=== PATIENT | female | born 1985 | race Caucasian/White ===

== ENCOUNTER 2017-02-20 18:54 | Emergency (ER) | payer OTHER ==
[2017-02-20 19:00] VITALS: BP 126/76; PULSE 104; TEMP 98.3; BMI 23.8
--- NOTE | 2017-02-20 19:02 | PDOC ---
Rapid Medical Evaluation Chief Complaint: Vaginal Bleeding Time Seen by Provider: 02/20/17 19:00 Medical Evaluation: Allergies Allergy/AdvReac Type Severity Reaction Status Date / Time sulfamethoxazole Allergy Verified 02/20/17 19:00 [From Bactrim] trimethoprim [From Bactrim] Allergy Verified 02/20/17 19:00 Vital Signs Temp Pulse Resp BP Pulse Ox 98.3 F 104 H 18 126/76 99 02/20/17 18:58 02/20/17 18:58 02/20/17 18:58 02/20/17 18:58 02/20/17 18:58 02/20/17 19:01 I have performed a brief in-person evaluation of this patient. The patient presents with a chief complaint of: vaginal bleeding and abdominal pain since last night. Patient 17 weeks states no more bleeding but complaining of abdominal cramping Pertinent physical exam findings: NAD unlabored breathing abdomen, non tender I have ordered the following: urinalysis The patient will proceed to the ED for further evaluation.
[2017-02-20 20:44] LABS: URINE APPEARANCE SLCLOUDY; URINE BILIRUBIN NEGATIVE (NEGATIVE); URINE BLOOD 2+ (NEGATIVE); URINE COLOR YELLOW; URINE GLUCOSE (UA) NEGATIVE (NEGATIVE); URINE KETONE NEGATIVE (NEGATIVE); URINE NITRITE NEGATIVE (NEGATIVE); URINE PROTEIN NEGATIVE (NEGATIVE); URINE UROBILINOGEN NEGATIVE mg/dL (0.2-1.0)
[2017-02-20 20:46] LABS: URINE LEUK ESTERASE 3+ (NEGATIVE)
[2017-02-20 20:50] LABS: URINE BACTERIA RARE /hpf (NONE SEEN); URINE MUCUS RARE; URINE RBC 2 /hpf (0-3); URINE WBC 4 /hpf (3-5)
--- NOTE | 2017-02-20 21:08 | PDOC ---
History of Present Illness - General History Source: Patient Exam Limitations: No Limitations - History of Present Illness Initial Comments: 02/20/17 21:13 Patient is a 31 year old female (O+),17 weeks , , who presents to the ED with vaginal bleeding since last night. Patient states that she had sexual intercourse last night and became time as she stopped she noted red blood bleeding with associated abdominal pain. Patient notes that she passed few blood clots and the bleeding has resolved. Patient states that later today she developed abdominal pain and has pinkish bleeding. She reports natural delivery in the past. [facility] - Dr. Bran <Lo Maloney - Last Filed: 02/20/17 21:12> <Marianela Olivera - Last Filed: 02/21/17 01:15> - General Chief Complaint: Vaginal Bleeding Stated Complaint: VAGINAL BLEEDING/17 WKS Time Seen by Provider: 02/20/17 19:00 Past History <Lo Maloney - Last Filed: 02/20/17 21:12> - Past Medical History COPD: No - Suicide/Smoking/Psychosocial Hx Smoking History: Never smoked Information on smoking cessation initiated: No Hx Alcohol Use: No Drug/Substance Use Hx: No Substance Use Type: None <Marianela Olivera - Last Filed: 02/21/17 01:15> - Past Medical History Allergies/Adverse Reactions: Allergies Allergy/AdvReac Type Severity Reaction Status Date / Time sulfamethoxazole Allergy Verified 02/20/17 19:00 [From Bactrim] trimethoprim [From Bactrim] Allergy Verified 02/20/17 19:00 Home Medications: Ambulatory Orders NK [No Known Home Medication] 02/20/17 Review of Systems - Review of Systems Able to Perform ROS?: Yes Comments:: 02/20/17 21:13 CONSTITUTIONAL: Absent: fever, chills, diaphoresis, generalized weakness, malaise, loss of appetite HEENT: Absent: rhinorrhea, nasal congestion, throat pain, throat swelling, difficulty swallowing, mouth swelling, ear pain, eye pain, visual Changes CARDIOVASCULAR: Absent: chest pain, syncope, palpitations, irregular heart rate, lightheadedness , peripheral edema RESPIRATORY: Absent: cough, shortness of breath, dyspnea with exertion, orthopnea, wheezing, stridor, hemoptysis GASTROINTESTINAL: Present:Abdominal discomfort. Absent: abdominal distension, nausea, vomiting, diarrhea, constipation, melena, hematochezia GENITOURINARY: Present: vaginal bleeding Absent: dysuria, frequency, urgency, hesitancy, hematuria, flank pain, genital pain MUSCULOSKELETAL: Absent: myalgia, arthralgia, joint swelling SKIN: Absent: rash, itching, pallor HEMATOLOGIC/IMMUNOLOGIC: Absent: easy bleeding, easy bruising, lymphadenopathy, frequent infections ENDOCRINE: Absent: unexplained weight gain, unexplained weight loss, heat intolerance, cold intolerance NEUROLOGIC: Absent: headache, focal weakness or paresthesias, dizziness, unsteady gait, seizure, mental status changes, bladder or bowel incontinence PSYCHIATRIC: Absent: anxiety, depression, suicidal or homicidal ideation, hallucinations. <Lo Maloney - Last Filed: 02/20/17 21:12> *Physical Exam - Vital Signs Last Vital Signs Temp Pulse Resp BP Pulse Ox 98.3 F 104 H 18 126/76 99 02/20/17 18:58 02/20/17 18:58 02/20/17 18:58 02/20/17 18:58 02/20/17 18:58 <Lo Maloney - Last Filed: 02/20/17 21:12> - Vital Signs Last Vital Signs Temp Pulse Resp BP Pulse Ox 98.3 F 104 H 18 126/76 99 02/20/17 18:58 02/20/17 18:58 02/20/17 18:58 02/20/17 18:58 02/20/17 18:58 <Marianela Olivera - Last Filed: 02/21/17 01:15> ED Treatment Course - ADDITIONAL ORDERS Additional order review: Laboratory Results 02/20/17 20:30 Urine Color Yellow Urine Appearance Slcloudy Urine pH 7.0 Ur Specific [place] 1.008 Urine Protein Negative Urine Glucose (UA) Negative Urine Ketones Negative Urine Blood 2+ H Urine Nitrite Negative Urine Bilirubin Negative Urine Urobilinogen Negative Urine WBC (Auto) 4 Urine RBC (Auto) 2 Ur Epithelial Cells Rare Urine Bacteria Rare Urine Mucus Rare <Lo Maloney - Last Filed: 02/20/17 21:12> - ADDITIONAL ORDERS Additional order review: Laboratory Results 02/20/17 20:30 Urine Color Yellow Urine Appearance Slcloudy Urine pH 7.0 Ur Specific [place] 1.008 Urine Protein Negative Urine Glucose (UA) Negative Urine Ketones Negative Urine Blood 2+ H Urine Nitrite Negative Urine Bilirubin Negative Urine Urobilinogen Negative Urine WBC (Auto) 4 Urine RBC (Auto) 2 Ur Epithelial Cells Rare Urine Bacteria Rare Urine Mucus Rare - RADIOLOGY Radiology Studies Ordered: Category Date Time Status FOLLOW-UP US [US] Stat Ultrasound 02/20/17 20:13 Ordered <Marianela Olivera - Last Filed: 02/21/17 01:15> Medical Decision Making - Medical Decision Making 02/21/17 01:14 Blood type O+. She is a significant anemia Pelvic ultrasound showed that there was a single live intrauterine of about 18 weeks with heart tones of 152. The os is closed. There was an adequate amount of amniotic fluid. However, stated that the placenta was lying over the os. Plan patient has an appointment later today with [facility] <Marianela Olivera - Last Filed: 02/21/17 01:15> *DC/Admit/Observation/Transfer - Attestations Scribe Attestion: 02/20/17 21:13 Documentation prepared by POOL Ramires, acting as medical van driver for Marianela Olivera MD/DO. <Lo Maloney - Last Filed: 02/20/17 21:12> <Marianela Olivera - Last Filed: 02/21/17 01:15> Diagnosis at time of Disposition: Threatened - Discharge Dispostion Disposition: HOME Condition at time of disposition: Stable - Referrals Referrals: Juani Bran MD [Primary Care Provider] - - Patient Instructions Printed Discharge Instructions: DI for Threatened Additional Instructions: KEEP YOUR APPOINTMENT WITH [facility] [facility] THIS WEEK - Post Discharge Activity
[2017-02-21 11:11] LABS: URINE LEUK ESTERASE 3+ (NEGATIVE)
== END 2017-02-20 23:41 | disposition home or self-care (01) ==
LOC: JER 18:54
DX: O26.892 Other specified pregnancy related conditions, second trimester (principal); Z3A.17 17 weeks gestation of pregnancy
CPT/HCPCS: 36415; 76816-TC; 81003; 81015; 84702; 86850; 86900; 86901; 87086; 99281-25

== ENCOUNTER 2017-07-17 11:45 | Inpatient (IN) | payer OTHER ==
[2017-07-17 16:26] LABS: BASO % 0.2 % (0-2.0); EOS % 0.3 % (0-4.5); HEMATOCRIT 36.9 % (32.4-45.2); HEMOGLOBIN 12.4 GM/dL (10.7-15.3); LYMPH % 20.3 % (8-40); MCH 33.1 pg (25.7-33.7); MCHC 33.6 g/dl (32.0-36.0); MEAN CELL VOLUME 98.3 fl (80-96); MEAN PLT VOLUME 10.1 fl (7.5-11.1); MONO % 5.5 % (3.8-10.2); NEUT % 73.7 % (42.8-82.8); PLATELET COUNT 246 K/MM3 (134-434); RBC 3.75 M/mm3 (3.60-5.2); RDW 13.9 % (11.6-15.6); WHITE BLOOD COUNT 9.3 K/mm3 (4.0-10.0)
[2017-07-17] MEDS ORDERED: DEXTROSE 5%-LACTATED RINGERS 1,000 ML IV SCH (16:45)
[2017-07-17 16:50] VITALS: BMI 27.4
[2017-07-17 16:58] LABS: ANION GAP 8 (8-16); BLOOD UREA NITROGEN 5 mg/dL (7-18); CALCIUM 8.8 mg/dL (8.5-10.1); CHLORIDE 105 mmol/L (98-107); CO2 25 mmol/L (21-32); CREATININE 0.6 mg/dL (0.55-1.02); GLUCOSE,RANDOM 112 mg/dL (74-106); POTASSIUM 3.7 mmol/L (3.5-5.1); SODIUM 138 mmol/L (136-145)
--- NOTE | 2017-07-17 18:27 | HP ---
Past Medical History - Admission Chief Complaint: Leakage of fluid History of Present Illness: 31 yo @ 39 weeks gestation, EDC 07/23/17, presents to L&D c/o leakage of fluid. Nitrazine test was negative but she was admitted because of advance cervical dilation. History Source: Patient Limitations to Obtaining History: No Limitations - Past Medical History ...: 2 ...Para: 1 ...Term: 0 ...: 1 ...Spon : 0 ...Induced : 0 ...Multiple Gestation: 0 ...LMP: 10/20/16 ... Weeks Gestation by Dates: 38.4 ...EDC by Dates: 07/27/17 ...EDC by [facility]: 07/23/17 - Past Surgical History Past Surgical History: Yes: None Hx Myomectomy: No Hx Transabdominal Cerclage: No - Smoking History Smoking history: Never smoked Have you smoked in the past 12 months: No - Alcohol/Substance Use Hx Alcohol Use: No - Social History History of Recent Travel: No Home Medications - Allergies Allergies/Adverse Reactions: Allergies Allergy/AdvReac Type Severity Reaction Status Date / Time sulfamethoxazole Allergy Severe Hives Verified 07/17/17 12:56 [From Bactrim] trimethoprim [From Bactrim] Allergy Verified 07/17/17 12:56 - Home Medications Home Medications: Ambulatory Orders Vit/Iron Fum/Folic AC [ Tablet] 1 tab PO DAILY 06/22/17 Ferrous Sulfate [Feosol] 325 mg PO BID 07/17/17 Family Disease History - Family Disease History Family History: Unremarkable Review of Systems - Review of Systems Constitutional: reports: No Symptoms Eyes: reports: No Symptoms HENT: reports: No Symptoms Neck: reports: No Symptoms Cardiovascular: reports: No Symptoms Respiratory: reports: No Symptoms Gastrointestinal: reports: No Symptoms Genitourinary: reports: Other (Leakage of fluid) Breasts: reports: No Symptoms Reported Musculoskeletal: reports: No Symptoms Integumentary: reports: No Symptoms Neurological: reports: No Symptoms Endocrine: reports: No Symptoms Hematology/Lymphatic: reports: No Symptoms Psychiatric: reports: No Symptoms Pain Intensity: 3 Physical Exam - Maternity Vital Signs: Vital Signs Temperature 99.0 F 07/17/17 15:00 Pulse Rate 87 07/17/17 17:00 Respiratory Rate 20 07/17/17 17:00 Blood Pressure 109/72 07/17/17 17:00 O2 Sat by Pulse Oximetry (%) Constitutional: Yes: Well Nourished Eyes: Yes: Conjunctiva Clear HENT: Yes: Atraumatic Neck: Yes: Supple Cardiovascular: Yes: Regular Rate and Rhythm Lungs: Clear to auscultation - Abdominal Exam/OB Number of Fetuses: Single Presentation: Vertex - Vaginal Exam/OB Dilatation (cm): 4 Effacement (%): 70 Station: -3 - Physical Exam Integumentary: Yes: WNL ...Motor Strength: WNL Psychiatric: Yes: Alert, Oriented - Labs Lab Results: CBC, BMP 07/17/17 15:45 07/17/17 15:45 Problem List - Problems (1) 39 weeks gestation of Code(s): Z3A.39 - 39 WEEKS GESTATION OF Assessment/Plan IUP @ 39 weeks Admit for augmentation of labor Analgesia as needed Anticipate
--- NOTE | 2017-07-17 18:39 | PN ---
Progress Note (short form) - Note Progress Note: Patient seen and evaluated. She c/o mild discomfort FHR : Reassuring [place] : + irregular contractions VE : / -3 SROM ( clear ) A/P : IUP @ 39 weeks Analgesia as needed Consider Pitocin augmentation Problem List - Problems (1) 39 weeks gestation of Code(s): Z3A.39 - 39 WEEKS GESTATION OF
[2017-07-17] MEDS ORDERED: OXYTOCIN 30 UNITS in 0.9% NS 30 UNIT/500 ML INFUS.BAG IVPB SCH (19:00)
[2017-07-17] MEDS ORDERED: PROMETHAZINE HCL 25 MG/1 ML VIAL ONE (20:41)
[2017-07-17] MEDS ORDERED: BUTORPHANOL TARTRATE 1 MG/ML VIAL ONE ×2 (20:41)
[2017-07-17] MEDS ORDERED: BUTORPHANOL TARTRATE 1 MG/ML VIAL IVPB ONE (21:00)
[2017-07-17] MEDS ORDERED: PROMETHAZINE HCL 25 MG/1 ML VIAL IVPB ONE (21:00)
[2017-07-17 21:31] LABS: INR 1.06 (0.82-1.09)
[2017-07-17 21:33] LABS: ACTIVATED PTT 24.2 SECONDS (26.9-34.4)
[2017-07-17] MEDS ORDERED: LIDOCAINE HCL 1% PRESERVATIVE FREE - 30ML VIAL ONE (22:42)
[2017-07-17] MEDS ORDERED: OXYTOCIN 20 UNITS in 0.9% NS 20 UNIT/1,000 ML INFUS.BAG IV ONE (22:42)
[2017-07-17] MEDS ORDERED: WITCH HAZEL 50% (TUCKS) 40 PAD/JAR PAD TP PRN (23:17)
[2017-07-17] MEDS ORDERED: METHYLERGONOVINE MALEATE 0.2 MG/1 ML AMP IM PRN (23:17)
[2017-07-17] MEDS ORDERED: BISACODYL 10 MG SUPP.RECT RC PRN (23:17)
[2017-07-17] MEDS ORDERED: BENZOCAINE 28 GM HEMORRHOIDAL OINTMENT TP PRN (23:17)
[2017-07-17] MEDS ORDERED: BENZOCAINE 20% 57 GM BOTTLE TP PRN (23:17)
--- NOTE | 2017-07-17 23:20 | PN ---
Delivery - Delivery Vaginal Delivery: Spontaneous Type of Anesthesia: Local Episiotomy/Laceration: None EBL (cc): 400 Delivery, Single - Feeding Plan Initial Plan: Exclusive throughout hospitalization Remarks - Remarks Remarks: Normal spontaneous vaginal delivery of a live infant girl over intact perineum. Nose / Oropharynx suctioned @ perineum. Nuchal cord x 1 clamped and cut. Placenta expelled spontaneously intact.
[2017-07-17] MEDS ORDERED: OXYTOCIN 20 UNITS in 0.9% NS 20 UNIT/1,000 ML INFUS.BAG IV SCH (23:30)
[2017-07-18] MEDS: ACETAMINOPHEN 325 MG TABLET (FP) PO PRN ×3 (02:11→20:01)
[2017-07-18] MEDS: IBUPROFEN 600 MG TABLET (FP) PO PRN ×3 (02:11→20:00)
[2017-07-18] MEDS: FERROUS SO4 325 MG TABLET (FP) PO SCH ×3 (08:29→18:04)
[2017-07-18 08:57] LABS: BASO % 0.2 % (0-2.0); EOS % 0.1 % (0-4.5); HEMATOCRIT 29.1 % (32.4-45.2); HEMOGLOBIN 9.9 GM/dL (10.7-15.3); LYMPH % 18.3 % (8-40); MCH 33.7 pg (25.7-33.7); MCHC 34.2 g/dl (32.0-36.0); MEAN CELL VOLUME 98.7 fl (80-96); MONO % 8.4 % (3.8-10.2); PLATELET COUNT 185 K/MM3 (134-434); RBC 2.94 M/mm3 (3.60-5.2); RDW 14.1 % (11.6-15.6); WHITE BLOOD COUNT 15.5 K/mm3 (4.0-10.0)
[2017-07-18] MEDS: PRENATAL VITAMINS W/ FOLIC ACID TABLET (FP) PO SCH (09:02)
--- NOTE | 2017-07-18 14:11 | PN ---
Post Progress Note - Subjective Subjective: 31 yo Para 2 status post normal vaginal delivery, seen and evaluated. Doing well Post Day: 1 Type of Delivery: Vital Signs: Vital Signs Temperature 98.7 F 07/18/17 08:30 Pulse Rate 95 H 07/18/17 08:30 Respiratory Rate 18 07/18/17 08:30 Blood Pressure 114/63 07/18/17 08:30 O2 Sat by Pulse Oximetry (%) 98 07/18/17 00:30 Breast Exam: Yes: Soft Uterus: Yes: Fundus Firm Abdomen/GI: Yes: Abdomen soft, Tolerating PO Lochia: Yes: Rubra Lochia, amount: Moderate Extremities: Yes: Calves non-tender Perineum: Yes: Intact Activity: Ambulating - Labs Labs: CBC WBC 15.5 K/mm3 (4.0-10.0) H D 07/18/17 08:00 RBC 2.94 M/mm3 (3.60-5.2) L D 07/18/17 08:00 Hgb 9.9 GM/dL (10.7-15.3) L D 07/18/17 08:00 Hct 29.1 % (32.4-45.2) L D 07/18/17 08:00 MCV 98.7 fl (80-96) H 07/18/17 08:00 MCH 33.7 pg (25.7-33.7) 07/18/17 08:00 MCHC 34.2 g/dl (32.0-36.0) 07/18/17 08:00 RDW 14.1 % (11.6-15.6) 07/18/17 08:00 Plt Count 185 K/MM3 (134-434) D 07/18/17 08:00 MPV 10.0 fl (7.5-11.1) 07/18/17 08:00 Neutrophils % 73.0 % (42.8-82.8) 07/18/17 08:00 Lymphocytes % 18.3 % (8-40) 07/18/17 08:00 Monocytes % 8.4 % (3.8-10.2) 07/18/17 08:00 Eosinophils % 0.1 % (0-4.5) 07/18/17 08:00 Basophils % 0.2 % (0-2.0) 07/18/17 08:00 Problem List - Problems (1) 39 weeks gestation of Code(s): Z3A.39 - 39 WEEKS GESTATION OF Assessment/Plan Status post normal vaginal delivery Stable Continue routine care
[2017-07-18] MEDS ORDERED: SENNOSIDES/DOCUSATE COMBO (SENNA PLUS) TABLET (UD) PO PRN (22:00)
--- NOTE | 2017-07-19 08:51 | PN ---
Post Progress Note - Subjective Subjective: no complains no dizziness Post Day: 2 Type of Delivery: Vital Signs: Vital Signs Temperature 98 F 07/18/17 22:00 Pulse Rate 76 07/18/17 22:00 Respiratory Rate 20 07/18/17 22:00 Blood Pressure 103/63 07/18/17 22:00 O2 Sat by Pulse Oximetry (%) 98 07/18/17 00:30 Breast Exam: Yes: Soft, Other (BF ). No: Engorged Uterus: Yes: Fundus Firm, Fundus below umbilicus, Non-tender Lochia: Yes: Rubra Lochia, amount: Moderate Extremities: Yes: Calves non-tender Perineum: Yes: Laceration Activity: Ambulating - Labs Labs: CBC WBC 15.5 K/mm3 (4.0-10.0) H D 07/18/17 08:00 RBC 2.94 M/mm3 (3.60-5.2) L D 07/18/17 08:00 Hgb 9.9 GM/dL (10.7-15.3) L D 07/18/17 08:00 Hct 29.1 % (32.4-45.2) L D 07/18/17 08:00 MCV 98.7 fl (80-96) H 07/18/17 08:00 MCH 33.7 pg (25.7-33.7) 07/18/17 08:00 MCHC 34.2 g/dl (32.0-36.0) 07/18/17 08:00 RDW 14.1 % (11.6-15.6) 07/18/17 08:00 Plt Count 185 K/MM3 (134-434) D 07/18/17 08:00 MPV 10.0 fl (7.5-11.1) 07/18/17 08:00 Neutrophils % 73.0 % (42.8-82.8) 07/18/17 08:00 Lymphocytes % 18.3 % (8-40) 07/18/17 08:00 Monocytes % 8.4 % (3.8-10.2) 07/18/17 08:00 Eosinophils % 0.1 % (0-4.5) 07/18/17 08:00 Basophils % 0.2 % (0-2.0) 07/18/17 08:00 Assessment/Plan anemia counselled discharge today
[2017-07-19] MEDS: IBUPROFEN 600 MG TABLET (FP) PO PRN (08:55)
[2017-07-19] MEDS: FERROUS SO4 325 MG TABLET (FP) PO SCH (08:57)
[2017-07-19] MEDS: ACETAMINOPHEN 325 MG TABLET (FP) PO PRN (08:57)
[2017-07-19] MEDS: PRENATAL VITAMINS W/ FOLIC ACID TABLET (FP) PO SCH (09:17)
[2017-07-19 10:27] VITALS: BP 106/65; PULSE 90; TEMP 98.1
== END 2017-07-19 12:20 | disposition home or self-care (01) | DRG 560 ==
LOC: JDEL 11:45 → JLDR 15:00 → J3W 07-18 00:58
PROVIDERS: ADMIT Obstetrics & Gynecology; ATTEND Obstetrics & Gynecology
PROC: 10E0XZZ Delivery of Products of Conception, External Approach (ICD-10-PCS; principal; 2017-07-17)
DX: O69.81X0 Labor and delivery complicated by cord around neck, without compression, not applicable or unspecified (principal); Z37.0 Single live birth; Z3A.39 39 weeks gestation of pregnancy
CPT/HCPCS: 36415; 59409; 80048; 85025; 85610; 85730; 86593; 86850; 86900; 86901